=== PATIENT | male | born 1980 | race Caucasian/White ===

== ENCOUNTER → 2017-09-16 | Outpatient (CLI) | payer OTHER ==
[~2017-09-16] MED LIST: LORTAB 5-325 M1 EACH PO; MONTELUKAST SOD10 MG PO; NAPROSYN500 MG PO
== END | disposition home or self-care (01) ==
LOC: CDC 09:18
DX: Z01.810 Encounter for preprocedural cardiovascular examination (principal); M67.441 Ganglion, right hand; M79.644 Pain in right finger(s)
CPT/HCPCS: 93000

== ENCOUNTER → 2017-12-23 | Outpatient (CLI) | payer OTHER | END | disposition home or self-care (01) | LOC: NUC 09:44 | DX: R10.11 Right upper quadrant pain (principal) | CPT/HCPCS: 78227; A9537 ==

== ENCOUNTER 2018-02-06 00:34 | Emergency (ER) | payer OTHER ==
[~2018-02-06] VITALS: Ht 172.7 cm; Wt 108.2 kg
[2018-02-06] MEDS ORDERED: MOTRIN800 MG PO (02:18)
[2018-02-06] MEDS ORDERED: NORCO 7.5/321 TABLET PO (02:18)
[2018-02-06 02:58] VITALS: BP 141/99
== END 2018-02-06 02:59 | disposition home or self-care (01) ==
LOC: EME 00:34
DX: S92.424A Nondisplaced fracture of distal phalanx of right great toe, initial encounter for closed fracture (principal); W23.0XXA Caught, crushed, jammed, or pinched between moving objects, initial encounter; S80.12XA Contusion of left lower leg, initial encounter; Z87.891 Personal history of nicotine dependence
CPT/HCPCS: 73590; 73630

== ENCOUNTER 2018-04-13 10:16 | Emergency (ER) | payer OTHER ==
[~2018-04-13] VITALS: Ht 172.7 cm; Wt 109.3 kg
[~2018-04-13 10:16] MED LIST changes: +MOTRIN800 MG PO; +NORCO 7.5/321 TABLET PO
[2018-04-13 12:04] LABS: APPEARANCE CLEAR ((CLEAR)); BILIRUBIN NEGATIVE; BLOOD NEGATIVE; COLOR YELLOW ((YELLOW)); GLUCOSE (STRIP) NEGATIVE; KETONES NEGATIVE; LEUKOCYTES NEGATIVE; NITRITE NEGATIVE; PROTEIN (STRIP) NEGATIVE; SPECIFIC GRAVITY 1.017 (1.000-1.030); UCUL ADDED? NO; UROBILINOGEN 0.2 MG/DL (0.2-1.0)
[2018-04-13] MEDS ORDERED: FEXOFENADINE H180 MG PO (12:31)
[2018-04-13] MEDS ORDERED: VALIUM5 MG PO (14:07)
[2018-04-13] MEDS ORDERED: PERCOCET 5/31 TABLET PO (14:07)
[2018-04-13 14:12] VITALS: BP 139/93
== END 2018-04-13 14:20 | disposition home or self-care (01) ==
LOC: EME 10:16
PROVIDERS: Physician Assistant
DX: M62.830 Muscle spasm of back (principal); G89.29 Other chronic pain; I10 Essential (primary) hypertension; J45.909 Unspecified asthma, uncomplicated; Z87.891 Personal history of nicotine dependence
CPT/HCPCS: 72100; 81003; 99281; 99284; J1100; J3010

== ENCOUNTER 2018-06-25 09:13 | Emergency (ER) | payer OTHER ==
[~2018-06-25] VITALS: Ht 172.7 cm; Wt 108.4 kg
[~2018-06-25 09:13] MED LIST changes: +FEXOFENADINE H180 MG PO; +PERCOCET 5/31 TABLET PO; +VALIUM5 MG PO
[2018-06-25] MEDS ORDERED: MOTRIN800 MG PO (11:09)
[2018-06-25] MEDS ORDERED: PERCOCET 5/31 TABLET PO (11:09)
[2018-06-25 11:21] VITALS: BP 108/78
[2018-06-29] MEDS ORDERED: LOVASTATIN10 MG PO (14:35)
[2018-06-29] MEDS ORDERED: PERCOCET 5/31 TABLET PO (14:35)
[2018-06-29] MEDS ORDERED: SINGULAIR10 MG PO (14:36)
[2018-06-29] MEDS ORDERED: NAPROSYN500 MG PO (14:36)
[2018-06-29] MEDS ORDERED: LISINOPRIL10 MG PO (14:37)
[2018-06-29] MEDS ORDERED: VENTOLIN HFA18 GM IH (14:50)
== END 2018-06-25 11:21 | disposition home or self-care (01) ==
LOC: EME 09:13
DX: S46.111A Strain of muscle, fascia and tendon of long head of biceps, right arm, initial encounter (principal); X50.0XXA Overexertion from strenuous movement or load, initial encounter; Y93.89 Activity, other specified; I10 Essential (primary) hypertension; J45.909 Unspecified asthma, uncomplicated; Z87.891 Personal history of nicotine dependence
CPT/HCPCS: 73030; 73060; 99281; 99284

== ENCOUNTER → 2018-06-26 | Outpatient (CLI) | payer OTHER ==
[~2018-06-26] MED LIST changes: +LISINOPRIL10 MG PO; +LOVASTATIN10 MG PO; +SINGULAIR10 MG PO; +VENTOLIN HFA18 GM IH
== END | disposition home or self-care (01) ==
LOC: CDC 13:04
DX: Z01.810 Encounter for preprocedural cardiovascular examination (principal); S46.211A Strain of muscle, fascia and tendon of other parts of biceps, right arm, initial encounter; M25.521 Pain in right elbow
CPT/HCPCS: 93000

== ENCOUNTER 2018-07-03 05:36 | Day surgery (SDC) | payer OTHER ==
[~2018-07-03] VITALS: Ht 172.7 cm; Wt 109.0 kg
[2018-07-03 06:08] VITALS: BP 137/66
[2018-07-03 10:25] VITALS: BP 116/59
== END 2018-07-03 11:25 | disposition home or self-care (01) ==
LOC: SDC
PROC: 0LQ30ZZ Repair Right Upper Arm Tendon, Open Approach (ICD-10-PCS; principal; 2018-07-03)
DX: S46.211A Strain of muscle, fascia and tendon of other parts of biceps, right arm, initial encounter (principal); I10 Essential (primary) hypertension; J45.909 Unspecified asthma, uncomplicated; E78.5 Hyperlipidemia, unspecified; X50.0XXA Overexertion from strenuous movement or load, initial encounter; Y93.89 Activity, other specified; Y92.009 Unspecified place in unspecified non-institutional (private) residence as the place of occurrence of the external cause
CPT/HCPCS: 87641; J0131; J0330; J0690; J1100; J1170; J2405; J2795; J3010; S0020